=== PATIENT | female | born 1985 ===

== ENCOUNTER 2017-08-29 20:00 | Emergency (ER) | payer OTHER ==
[2017-08-29 20:05] VITALS: TEMP 98
[2017-08-29] MEDS ORDERED: Sodium Chloride 0.9% 1,000 ML IV ONE (20:15)
[2017-08-29 20:37] LABS: BASO % 0.4 % (0.0-2.0); EOS # 0.1 K/uL (0.0-0.7); EOS % 0.9 % (0.0-4.0); HEMATOCRIT 38.8 % (34.0-47.0); LYMPH # 2.6 K/uL (1.0-4.3); LYMPH % 21.1 % (20.0-40.0); MEAN CELL VOLUME 91.5 fL (81.0-99.0); MEAN CORPUSCULAR HEMOGLOBIN 30.8 pg (27.0-31.0); MEAN CORPUSCULAR HGB CONC 33.6 g/dL (33.0-37.0); MEAN PLATELET VOLUME 9.4 fL (7.2-11.7); MONO # 0.7 K/uL (0.0-0.8); RED CELL DISTRIBUTION WIDTH 12.4 % (11.5-14.5); WHITE BLOOD COUNT 12.2 K/uL (4.8-10.8)
[2017-08-29 20:40] LABS: URINE BILIRUBIN NEGATIVE (NEGATIVE); URINE BLOOD 3+ (NEGATIVE); URINE COLOR Straw (YELLOW); URINE GLUCOSE (UA) NORMAL (Normal); URINE KETONE NEGATIVE (NEGATIVE); URINE LEUKOCYTE ESTERASE NEG Leu/uL (Negative); URINE PROTEIN NEGATIVE (NEGATIVE); URINE UROBILINOGEN NORMAL mg/dL (0.2-1.0); WBC URINE < 1 /hpf (0-5)
[2017-08-29 20:46] LABS: CHLORIDE 96 mmol/L (98-107); SODIUM 132 mmol/L (132-148)
[2017-08-29 20:47] LABS: POTASSIUM 3.2 mmol/L (3.6-5.2)
[2017-08-29 20:49] LABS: ALKALINE PHOSPHATASE 46 U/L (38-126); ALT/SGPT 32 U/L (9-52); AST/SGOT 16 U/L (14-36); BILIRUBIN,TOTAL 0.4 mg/dL (0.2-1.3); BLOOD UREA NITROGEN 10 mg/dL (7-17); CARBON DIOXIDE 25 mmol/L (22-30); GFR AFRICAN-AMERICAN > 60; GLUCOSE,RANDOM 77 mg/dL (65-105); TOTAL PROTEIN 7.9 g/dL (6.3-8.3)
[2017-08-29 20:50] LABS: CALCIUM 9.3 mg/dl (8.6-10.4)
--- NOTE | 2017-08-29 22:19 | C.PDOC ---
History Of Present Illness 32 year old female, currently at approximately 6 weeks gestation, presents to the ER for evaluation of vaginal spotting and pelvic cramping since yesterday. She admits to nausea. Patient denies vomiting, diarrhea, or dysuria/ hematuria. Patients notes first was uncomplicated. Time Seen by Provider: 08/29/17 20:01 Chief Complaint (Nursing): Female Genitourinary History Per: Patient History/Exam Limitations: no limitations Onset/Duration Of Symptoms: Days Severity: Mild Quality Of Discomfort: Cramping, "Pain" Associated Symptoms: Nausea. denies: Vomiting, Diarrhea, Urinary Symptoms Abnormal Vaginal Bleeding: Yes : 2 Para: 1 Past Medical History Reviewed: Historical Data, Nursing Documentation, Vital Signs Vital Signs: Last Vital Signs Temp 98 F 08/29/17 20:01 Pulse 84 08/29/17 22:52 Resp 20 08/29/17 22:52 BP 135/80 08/29/17 22:52 Pulse Ox 100 08/29/17 22:52 - Medical History PMH: Hypothyroidism Family History: States: No Known Family Hx - Social History Hx Alcohol Use: No Hx Substance Use: No - Immunization History Hx Tetanus Toxoid Vaccination: No Hx Influenza Vaccination: No Hx Pneumococcal Vaccination: No Review Of Systems Except As Marked, All Systems Reviewed And Found Negative. Constitutional: Negative for: Fever, Chills Cardiovascular: Negative for: Chest Pain Respiratory: Negative for: Shortness of Breath Gastrointestinal: Positive for: Nausea. Negative for: Vomiting, Diarrhea Genitourinary: Positive for: Vaginal Bleeding, Pelvic Pain. Negative for: Dysuria Musculoskeletal: Negative for: Back Pain Skin: Negative for: Rash Physical Exam - Physical Exam Appears: Well, Non-toxic, No Acute Distress Skin: Normal Color, Warm, Dry Eye(s): bilateral: Normal Inspection Oral Mucosa: Moist Cardiovascular: Rhythm Regular (Rate Regular) Respiratory: Normal Breath Sounds, No Rales, No Rhonchi, No Wheezing Gastrointestinal/Abdominal: Bowel Sounds, Soft, Tenderness (mild suprapubic tenderness to palpation), No Guarding, No Rebound, No Other ((-) McBurney's ) Back: No CVA Tenderness Neurological/Psych: Oriented x3 ED Course And Treatment - Laboratory Results Result Diagrams: 08/29/17 20:34 08/29/17 20:34 O2 Sat by Pulse Oximetry: 98 (RA) Pulse Ox Interpretation: Normal - CT Scan/US Ultrasound Other Rad Studies (CT/US): Read By Radiologist, Radiology Report Reviewed CT/US Interpretation: EXAM: US First Trimester, Transabdominal. CLINICAL HISTORY: 32 years old, female; Signs and symptoms; Lmp or gestational age (in weeks): 07/13/17; Other: Preg/bleeding; ; Additional info: , bleeding. TECHNIQUE: Real-time transabdominal obstetrical ultrasound of the maternal pelvis and a first trimester. with image documentation. COMPARISON: No relevant prior studies available. FINDINGS: Gestation: A single intrauterine gestation is identified with a crown-rump length measuring 15.6 mm,. corresponding to an approximate gestational age of 8 weeks and 0 days. cardiac activity is identified at a rate of 161 beats per minute. Placenta/amniotic fluid: Cannot be adequately evaluated due to the early gestational age. Uterus/cervix: Cervix measures 3.8 cm, and is closed. Ovaries: Unremarkable in echogenicity and size. No mass. Normal blood flow. Free fluid: No free fluid. IMPRESSION: Single intrauterine gestation with an approximate gestational age of 8 weeks and 0 days. cardiac activity is identified. Progress Note: Plan: Blood work, UA, Transvaginal US ordered and reviewed. Patient given IV NS bolus. Reevaluation Time: 22:55 Reassessment Condition: Improved (On reassessment, patient is resting comfortably, in no pain/distress. On exam, abdomen is soft and nontender. US shows live 8wk IUP with cardiac activity. Beta quant of appropriate level , and blood type is A+. Patient is comfortable being discharged home, was instructed to follow up with title insurance examiner within 1 week. She understands she should return to ED if symptoms worsen.) Disposition Counseled Patient/Family Regarding: Studies Performed, Diagnosis, Need For Followup, Rx Given - Disposition Referrals: [facility] [Outside] Disposition: HOME/ ROUTINE Disposition Time: 22:55 Condition: STABLE Additional Instructions: FOLLOW UP WITH YOUR LAMP TESTER AND INSPECTOR WITHIN 1 WEEK IF SYMPTOMS CONTINUE RETURN TO ER IN 48 HOURS FOR REPEAT HORMONE LEVEL AND ULTRASOUND USE TYLENOL NEEDED FOR PAIN Instructions: First Trimester Vaginal Bleed (ED) Forms: [employer] (Italian) Print Language: PASHTO - POA Present On Arrival: None - Clinical Impression Clinical Impression: First trimester bleeding - Scribe Statement The provider has reviewed the documentation as recorded by the Joseiburiel Landers Provider Attestation: All medical record entries made by the Joseibe were at my direction and personally dictated by me. I have reviewed the chart and agree that the record accurately reflects my personal performance of the history, physical exam, medical decision making, and the department course for this patient. I have also personally directed, reviewed, and agree with the discharge instructions and disposition.
[2017-08-29 22:53] VITALS: BP 135/80; PULSE 84; RESP 20
[2017-08-30 05:28] VITALS: O2SAT 98
== END 2017-08-29 22:52 | disposition home or self-care (01) ==
LOC: C.ER 20:00
DX: O20.9 Hemorrhage in early pregnancy, unspecified (principal); Z3A.08 8 weeks gestation of pregnancy
CPT/HCPCS: 76801; 80053; 81001; 84702; 85025; 86850; 86900; 96360; 99283; J7040

== ENCOUNTER 2018-02-17 00:25 | Emergency (ER) | payer OTHER, BC ==
[2018-02-17 00:58] VITALS: BMI 27.1
[2018-02-17 01:19] LABS: SQUAMOUS EPITHIAL 5 /hpf (0-5); URINE BACTERIA RARE (<OCC); URINE BILIRUBIN NEGATIVE (NEGATIVE); URINE BLOOD NEGATIVE (NEGATIVE); URINE CLARITY Hazy (Clear); URINE COLOR Yellow (YELLOW); URINE GLUCOSE (UA) 1+ mg/dL (Normal); URINE HYALINE CAST 0-2 /lpf (0-2); URINE PROTEIN 1+ mg/dL (NEGATIVE); URINE UROBILINOGEN NORMAL mg/dL (0.2-1.0)
[2018-02-17 01:48] LABS: URINE LEUKOCYTE ESTERASE TRACE Leu/uL (Negative)
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
[2018-02-17 06:57] VITALS: BP 115/66; PULSE 81; TEMP 97.2
== END 2018-02-17 02:57 | disposition home or self-care (01) ==
LOC: C.EROB 00:25
DX: O26.93 Pregnancy related conditions, unspecified, third trimester (principal); M54.9 Dorsalgia, unspecified; Z3A.31 31 weeks gestation of pregnancy; V49.49XA Driver injured in collision with other motor vehicles in traffic accident, initial encounter; Y92.410 Unspecified street and highway as the place of occurrence of the external cause